=== PATIENT | female | born 1990 | race Caucasian/White ===

== ENCOUNTER 2017-04-16 03:07 | Emergency (ER) | payer SELFPAY ==
[~2017-04-16] VITALS: Ht 157.5 cm; Wt 65.0 kg
[2017-04-16 03:09] VITALS: BP 152/79; PULSE 85; RESP 16; TEMP 97.6; O2SAT 97
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
[2017-04-16] MEDS ORDERED: IBUPROFEN 800 MG TAB PO ONE (04:45)
[2017-04-16] MEDS ORDERED: DICL75TA PO (05:19)
--- NOTE | 2017-04-16 05:45 | RADRPT ---
EXAM DATE/TIME: 04/16/2017 04:34 [facility] COMPARISON: No previous studies available for comparison. INDICATIONS : Left foot pain from foot getting stepped on. MEDICAL HISTORY : None. SURGICAL HISTORY : None. ENCOUNTER: Initial ACUITY: 1 day PAIN SCORE: 07/26 LOCATION: Left foot FINDINGS: Three view examination of the left foot demonstrates no soft tissue swelling, dislocation, or fractur e. The tarsal bones appear intact. The interphalangeal and metatarsophalangeal joints are intact. The calcaneus is intact. Bony mineralization is normal. CONCLUSION: Normal examination for a patient of this age. Chevy Ellis MD on April 16, 2017 at 5:43 Board Certified Radiologist. This report was verified electronically.
== END 2017-04-16 05:37 | disposition home or self-care (01) ==
LOC: NEPD 03:07
DX: S00.83XA Contusion of other part of head, initial encounter (principal); S90.32XA Contusion of left foot, initial encounter; T74.11XA Adult physical abuse, confirmed, initial encounter; Y07.03 Male partner, perpetrator of maltreatment and neglect; Y04.2XXA Assault by strike against or bumped into by another person, initial encounter; Y92.89 Other specified places as the place of occurrence of the external cause
CPT/HCPCS: 73630; 99283